=== PATIENT | female | born 1970 | race Caucasian/White ===

== ENCOUNTER 2019-04-15 17:03 | Emergency (ER) | payer BC ==
--- NOTE | 2019-04-15 17:49 | EDM.PDOC ---
ED HPI GENERAL MEDICAL PROBLEM - General Chief Complaint: Lower Extremity Injury/Pain Stated Complaint: INJURED TOE Time Seen by Provider: 04/15/19 17:47 Source of Information: Reports: Patient - History of Present Illness INITIAL COMMENTS - FREE TEXT/NARRATIVE: HISTORY AND PHYSICAL: History of present illness: [Patient presents with right third toe pain 8 out of 10, she was walking past a stool and jammed her toe with drainage does have pain over the dorsum of her foot as well no fever nausea vomiting chills sweats no open lesion entirely limb is neurovascularly intact] Review of systems: As per history of present illness and below otherwise all systems reviewed and negative. Past medical history: As per history of present illness and as reviewed below otherwise noncontributory. Surgical history: As per history of present illness and as reviewed below otherwise noncontributory. Social history: No reported history of drug or alcohol abuse. Family history: As per history of present illness and as reviewed below otherwise noncontributory. Physical exam: HEENT: Atraumatic, normocephalic, pupils reactive, negative for conjunctival pallor or scleral icterus, mucous membranes moist, throat clear, neck supple, nontender, trachea midline. Lungs: Clear to auscultation, breath sounds equal bilaterally, chest nontender. Heart: S1S2, regular, negative for clicks, rubs, or JVD. Abdomen: Soft, nondistended, nontender. Negative for masses or hepatosplenomegaly. Negative for costovertebral tenderness. Pelvis: Stable nontender. Genitourinary: Deferred. Rectal: Deferred. Extremities: Atraumatic, negative for cords or calf pain. Neurovascular unremarkable. Neuro: Awake, alert, oriented. Cranial nerves II through XII unremarkable. Cerebellum unremarkable. Motor and sensory unremarkable throughout. Exam nonfocal. Diagnostics: [Right foot 3 views ] Therapeutics: []Tylenol 3 Slick tape Patient refused postop shoe Impression: [ right third toe fracture ] Definitive disposition and diagnosis as appropriate pending reevaluation and review of above. right toe Pain Score (Numeric/FACES): 7 - Related Data Allergies Allergy/AdvReac Type Severity Reaction Status Date / Time Penicillins Allergy Rash Verified 04/15/19 17:27 Home Meds: Home Meds Estradiol 1 dose .ROUTE ASDIRECTED 04/15/19 [History] Loratadine 10 mg PO DAILY 04/15/19 [History] Past Medical History - Past Health History Medical/Surgical History: Denies Medical/Surgical History Social & Family History - Family History Family Medical History: Noncontributory - Tobacco Use Smoking Status *Q: Current Every Day Smoker Years of Tobacco use: 30 Packs/Tins Daily: 10 - Recreational Drug Use Recreational Drug Use: No Review of Systems - Review of Systems Review Of Systems: See Below ED EXAM, GENERAL - Physical Exam Exam: See Below Course - Vital Signs Last Recorded V/S: Last Vital Signs Temp 97.6 F 04/15/19 17:22 Pulse 70 04/15/19 17:22 Resp 18 04/15/19 17:22 BP 140/80 04/15/19 17:22 Pulse Ox 96 04/15/19 17:22 - Orders/Labs/Meds Orders: Active Orders 24 hr Category Date Time Status Foot Comp Min 3V Rt [CR] Stat Exams 04/15/19 17:21 Taken Departure - Departure Time of Disposition: 17:48 Disposition: Home, Self-Care 01 Condition: Good Clinical Impression: Toe fracture, right - Discharge Information Referrals: PCP,Unknown [Primary Care Provider] - Additional Instructions: Medication as prescribed Return if symptoms persist or worsen Follow-up with roofer applicator, call phone number below to schedule appropriate follow-up [facility] [address] [place] [id number] The following information is given to patients seen in the emergency department who are being discharged to home. This information is to outline your options for follow-up care. We provide all patients seen in our emergency department with a follow-up referral. The need for follow-up, as well as the timing and circumstances, are variable depending upon the specifics of your emergency department visit. If you don't have a primary care physician on staff, we will provide you with a referral. We always advise you to contact your personal physician following an emergency department visit to inform them of the circumstance of the visit and for follow-up with them and/or the need for any referrals to a consulting specialist. The emergency department will also refer you to a specialist when appropriate. This referral assures that you have the opportunity for follow-up care with a specialist. All of these measure are taken in an effort to provide you with optimal care, which includes your follow-up. Under all circumstances we always encourage you to contact your private physician who remains a resource for coordinating your care. When calling for follow-up care, please make the office aware that this follow-up is from your recent emergency room visit. If for any reason you are refused follow-up, please contact the [facility] emergency department at and asked to speak to the emergency department charge nurse. - My Orders Last 24 Hours: My Active Orders 04/15/19 17:21 Foot Comp Min 3V Rt [CR] Stat - Assessment/Plan Last 24 Hours: My Active Orders 04/15/19 17:21 Foot Comp Min 3V Rt [CR] Stat
[2019-04-15] MEDS ORDERED: Acetaminophen/Codeine 300-30 MG Tab PO STA (17:50)
--- NOTE | 2019-04-15 18:26 | CR ---
Indication: Injury and pain Technique: Right foot 3 views Comparison: None Findings/Impression: Bones: Acute nondisplaced fractures in the proximal phalanx of the right 4th toe. No other fracture and no dislocation. Prominent plantar calcaneal bone spur is present. Joint spaces: Unremarkable. Soft tissues: Soft tissue swelling is adjacent to the fracture. Dictated by Mirza Au MD @ Apr 15 2019 6:23PM Signed by Dr. Mirza Au @ Apr 15 2019 6:25PM
== END 2019-04-15 18:08 | disposition home or self-care (01) ==
LOC: MW.ED 17:03
DX: S92.514A Nondisplaced fracture of proximal phalanx of right lesser toe(s), initial encounter for closed fracture (principal); W23.1XXA Caught, crushed, jammed, or pinched between stationary objects, initial encounter
CPT/HCPCS: 73630; 99283; A9270; 99282